=== PATIENT | male | born 1960 | race Caucasian/White ===

== ENCOUNTER 2016-10-15 05:51 | Observation (INO) | payer BC ==
--- NOTE | ~2016-10-15 | OP ---
Record Of Operation [facility] [address] [place]. [address] NAME: BECKY MYRICK : 64 STATUS : REG REF PAT#: [id number] AGE: 56 ADM/REG DATE : 10/15/16 MR#: [id number] REPORT SERV DATE: 10/15/16 DICTATED BY: MINGO BOSCH DATE: 10/15/16 REPORT STATUS : Draft TRANSCRIBED BY: MODL DATE: 10/15/16 DATE OF PROCEDURE: 10/15/2016 INDICATION: Atrial fibrillation and atrial flutter. PROCEDURE: Elective transesophageal echocardiogram. DESCRIPTION OF PROCEDURE: All questions were answered and informed consent was obtained. Anesthesia administered sedation. Upon successful sedation, the transesophageal probe was inserted without complication. Salient echocardiographic windows were obtained, with findings detailed below. Upon completion of the study, the transesophageal probe was withdrawn without any complications. ECHOCARDIOGRAPHIC FINDINGS: 1. Normal left ventricular size and systolic function, with an estimated ejection fraction of 60%. 2. Normal right ventricular size and systolic function. 3. Color Doppler with left to right flow across the interatrial septum, most consistent with a stretched PFO versus ASD. 4. Color Doppler with mild MR. 5. Morphologically normal mitral, tricuspid, aortic valves. 6. No thrombus in the left atrial appendage at the time of the study with normal Doppler velocities(approximate peak velocity 60 cm/sec). 7. Normal aorta without significant atherosclerotic plaquing. VR/UVALDO Mingo Bosch MD / [id number] CC: John Delacruz
[~2016-10-15 05:51] MED LIST: ADVIL PO; CARTIA XT120 MG/24 PO; COREG12 PO; COREG25 PO; FLECAINIDE100 MG PO; FLOMAX4 PO; MULTIPLE VIT PO; PRILOSEC40 MG PO; RYTHMOL225 MG PO; XARELTO20 MG PO; ZESTORETIC1 TA1 PO
[2016-10-15 06:49] LABS: BASOPHILS 0.5 %; BASOPHILS ABSOLUTE 0.02 10/3/uL (0.0-0.16); EOSINOPHILS 8.2 %; EOSINOPHILS ABSOLUTE 0.34 10/3/uL (0.0-0.53); IMMATURE GRANULOCYTES 0.2 %; IMMATURE GRANULOCYTES ABSOLUTE 0.01 10/3/uL (0.0-0.11); LYMPHOCYTES 27.1 %; LYMPHOCYTES ABSOLUTE 1.12 10/3/uL (0.67-4.30); MEAN CORPUS HGB CONC 34.2 g/dL (32.0-36.0); MEAN CORPUSCULAR HEMOGLOB 31.4 pg (26.0-34.0); MEAN CORPUSCULAR VOLUME 91.8 fL (80-100); MEAN PLATELET VOLUME 10.1 fL (9.2-13.0); MONOCYTES ABSOLUTE 0.58 10/3/uL (0.21-1.20); NEUTROPHILS ABSOLUTE 2.06 10/3/uL (2.02-8.40); PLATELET COUNT 199 10/3/uL (150-400); RBC DISTRIBUTION WIDTH 13.1 % (12.0-16.0); RED CELL COUNT 4.14 10/6/uL (4.7-6.1); WHITE BLOOD CELLS 4.1 10/3/uL (4.5-10.5)
[2016-10-15 06:52] LABS: MANUAL DIFF NO %
[2016-10-15 07:04] LABS: BUN (BLOOD UREA NITROGEN) 18 MG/DL (6-23); CALCIUM, SERUM 8.9 MG/DL (8.5-10.4); CHLORIDE, SERUM 109 MMOL/L (96-112); CO2 (CARBON DIOXIDE) 28 MMOL/L (24-34); GFR AFRICAN AMERICAN 88 ML/MIN (>=60); GFR NON AFRICAN AMERICAN 76 ML/MIN (>=60); GLUCOSE, SERUM 99 MG/DL (60-99); POTASSIUM, SERUM 4.2 MMOL/L (3.5-5.3); SODIUM, SERUM 145 MMOL/L (135-148)
[2016-10-15] MEDS ORDERED: PRILO PO (14:34)
[2016-10-16] MEDS ORDERED: PRILO PO (10:45)
[2017-03-01] MEDS ORDERED: T PO (14:34)
== END 2016-10-16 10:57 | disposition home or self-care (01) ==
LOC: CORLMH 05:51 → SSU1 05:58
PROVIDERS: Internal Medicine Cardiovascular Disease
DX: I48.1 Persistent atrial fibrillation (principal); I48.3 Typical atrial flutter; I48.4 Atypical atrial flutter; I10 Essential (primary) hypertension; H91.90 Unspecified hearing loss, unspecified ear; N40.0 Benign prostatic hyperplasia without lower urinary tract symptoms; Z79.01 Long term (current) use of anticoagulants; Z79.899 Other long term (current) drug therapy; Z82.49 Family history of ischemic heart disease and other diseases of the circulatory system; Z90.89 Acquired absence of other organs; Z98.890 Other specified postprocedural states
CPT/HCPCS: 80048; 82962; 85025; 85347; 85730; 93005; 93312; 93320; 93325; 93613; 93655; 93656; 93662; A9270-GY; C1730; C1732; C1733; C1759; C1781; C1894; G0378; J2270; J2720